=== PATIENT | female | born 1945 | race Caucasian/White ===

== ENCOUNTER 2018-02-18 10:22 | Emergency (ER) | payer MEDICARE, MEDICAID, OTHER ==
[2018-02-18] MEDS: KETOROLAC 30 MG INJ IM (11:48)
== END 2018-02-18 13:23 | disposition home or self-care (01) ==
LOC: FTE 10:22
DX: M25.511 Pain in right shoulder (principal); M25.512 Pain in left shoulder; E11.9 Type 2 diabetes mellitus without complications; Z79.4 Long term (current) use of insulin; Z79.82 Long term (current) use of aspirin
CPT/HCPCS: 73030; 73030-50; 73060-RT; 96372; 99284-25

== ENCOUNTER 2018-07-19 12:08 | Emergency (ER) | payer MEDICARE, MEDICAID ==
[2018-07-19] MEDS: KETOROLAC 30 MG INJ IM (13:47)
== END 2018-07-19 16:20 | disposition home or self-care (01) ==
LOC: FTE 12:08
DX: M25.511 Pain in right shoulder (principal); M25.512 Pain in left shoulder; E11.9 Type 2 diabetes mellitus without complications; Z79.4 Long term (current) use of insulin; Z79.82 Long term (current) use of aspirin
CPT/HCPCS: 73030; 73030-50; 73060; 96372; 99284-25